=== PATIENT | female | born 1985 | race Caucasian/White ===

== ENCOUNTER 2023-07-04 14:17 | Inpatient (IN) | payer OTHER ==
[2023-07-04 15:24] VITALS: BMI 34.3
[2023-07-04] MEDS ORDERED: IBUPROFEN 400 MG TABLET (FP) PO PRN (18:23)
[2023-07-04] MEDS ORDERED: MAGNESIUM HYDROX 2400MG/30ML ORAL SUSPENSION 30 ML CUP PO PRN (18:23)
[2023-07-04] MEDS ORDERED: BENZOCAINE/MENTHOL (CHLORASEPTIC ) LOZENGE MM PRN (18:23)
[2023-07-04] MEDS ORDERED: MAG HYDROX/AL HYDROX/SIMETH 30 ML UNIT-DOSE CUP PO PRN (18:23)
[2023-07-04] MEDS ORDERED: BISMUTH SUBSALICYLATE 524 MG/30 ML PO PRN (18:23)
[2023-07-04] MEDS ORDERED: BENZONATATE 200 MG CAPSULE PO PRN (18:23)
[2023-07-04] MEDS ORDERED: POLYETHYLENE GLYCOL (HEALTHYLAX) 3350 17 GM PACKET PO PRN (18:23)
[2023-07-04] MEDS ORDERED: P-EPHED 60MG/TRIPROLIDI 2.5MG TABLET PO PRN (18:23)
[2023-07-04] MEDS ORDERED: guaiFENesin 600 MG TABLET.ER (FP) PO PRN (18:23)
[2023-07-04] MEDS ORDERED: ACETAMINOPHEN 325 MG TABLET (FP) PO PRN (18:23)
[2023-07-04] MEDS ORDERED: LOPERAMIDE HCL 2 MG CAPSULE PO PRN (18:23)
[2023-07-04] MEDS ORDERED: ALBUTEROL SO4 HFA INHALER IH PRN (19:44)
[2023-07-04] MEDS ORDERED: TOPIRAMATE 100 MG TABLET PO SCH (22:00)
[2023-07-04] MEDS ORDERED: PATIENT'S OWN MEDICATION (NON-FORMULARY) (Topiramate [Topiramate] 50 MG Tablet) PO SCH (22:00)
[2023-07-04] MEDS: TOPIRAMATE 100 MG, TOPIRAMATE 50 MG PO SCH (22:55)
[2023-07-04] MEDS: THIAMINE HCL 100 MG TABLET (FP) PO SCH (22:55)
[2023-07-04] MEDS: diazePAM 5 MG TABLET PO SCH (22:55)
[2023-07-05] MEDS: diazePAM 5 MG TABLET PO SCH ×4 (05:16→22:16)
[2023-07-05] MEDS: metFORMIN HCL 500 MG TABLET (FP) PO SCH (06:25)
[2023-07-05] MEDS: NICOTINE 14 MG/24 HOURS TOPICAL PATCH TD SCH (10:27)
[2023-07-05] MEDS: LORATADINE 10 MG TABLET PO SCH (10:27)
[2023-07-05] MEDS: PRENATAL VITAMINS W/ FOLIC ACID TABLET (FP) PO SCH (10:27)
[2023-07-05] MEDS: PATIENT'S OWN MEDICATION (NON-FORMULARY) (Linaclotide [Linzess] 145 MCG Capsule) PO SCH (10:28)
[2023-07-05] MEDS: TOPIRAMATE 100 MG, TOPIRAMATE 50 MG PO SCH ×2 (10:28→22:15)
[2023-07-05] MEDS: PANTOPRAZOLE 40 MG TABLET PO SCH (10:28)
[2023-07-05] MEDS: PATIENT'S OWN MEDICATION (NON-FORMULARY) (Mometasone Furoate [Asmanex] 220 MCG Aer.Pow.Ba) IH SCH (10:29)
[2023-07-05] MEDS: D3 PO SCH (10:29)
[2023-07-05] MEDS: DHA PO SCH (10:29)
[2023-07-05] MEDS: COD LIVER OIL PO SCH (10:29)
[2023-07-05] MEDS: EPA PO SCH (10:29)
[2023-07-05] MEDS: [UNRECOGNIZED DRUG - OTHER] PO SCH (10:29)
[2023-07-05] MEDS ORDERED: TOPIRAMATE 100 MG TABLET PO SCH (10:30)
[2023-07-05 10:34] LABS: HEMATOCRIT 41.8 % (32.4-45.2); HEMOGLOBIN 13.6 GM/dL (10.7-15.3); MCH 27.8 pg (25.7-33.7); MCHC 32.6 g/dl (32.0-36.0); MEAN CELL VOLUME 85.1 fl (80-96); MEAN PLT VOLUME 8.3 fl (7.5-11.1); PLATELET COUNT 319 10^3/uL (134-434); RBC 4.91 M/mm3 (3.60-5.2); RDW 13.8 % (11.6-15.6); WHITE BLOOD COUNT 9.5 K/mm3 (4.0-10.0)
[2023-07-05 10:51] LABS: CHLORIDE 113 mmol/L (98-107); POTASSIUM 3.9 mmol/L (3.5-5.1); SODIUM 137 mmol/L (136-145)
[2023-07-05 10:53] LABS: ANION GAP 0 mmol/L (4-13); CALCIUM 8.1 mg/dL (8.5-10.1); CO2 23 mmol/L (21-32); GLUCOSE,RANDOM 91 mg/dL (74-106)
[2023-07-05 10:54] LABS: ALBUMIN 3.1 g/dl (3.4-5.0); BLOOD UREA NITROGEN 14.7 mg/dL (7-18)
[2023-07-05 10:56] LABS: SGPT/ALT 19 U/L (13-61)
[2023-07-05 10:57] LABS: CREATININE 0.7 mg/dL (0.55-1.3); SGOT/AST 13 U/L (15-37)
[2023-07-05 10:58] LABS: BILIRUBIN,TOTAL 0.5 mg/dL (0.2-1); TOT PROT 6.4 g/dl (6.4-8.2)
[2023-07-05 10:59] LABS: ALK PHOS 100 U/L (45-117)
[2023-07-05] MEDS: ONDANSETRON *ODT* 4 MG TABLET SL PRN (14:24)
[2023-07-05] MEDS ORDERED: COLLOIDAL OATMEAL 1 BAR EACH TP PRN (18:08)
[2023-07-05] MEDS: IBUPROFEN 600 MG TABLET (FP) PO PRN (19:18)
[2023-07-05] MEDS: diazePAM 5 MG TABLET PO PRN (19:38)
[2023-07-05] MEDS ORDERED: QUEtiapine FUMARATE 50 MG TABLET PO SCH ×2 (22:00)
[2023-07-05] MEDS: THIAMINE HCL 100 MG TABLET (FP) PO SCH (22:15)
[2023-07-06] MEDS: diazePAM 5 MG TABLET PO SCH ×4 (05:46→21:35)
[2023-07-06] MEDS: metFORMIN HCL 500 MG TABLET (FP) PO SCH ×2 (06:19→08:48)
[2023-07-06] MEDS: LORATADINE 10 MG TABLET PO SCH (09:58)
[2023-07-06] MEDS: PATIENT'S OWN MEDICATION (NON-FORMULARY) (Linaclotide [Linzess] 145 MCG Capsule) PO SCH (09:59)
[2023-07-06] MEDS: NICOTINE 14 MG/24 HOURS TOPICAL PATCH TD SCH (10:00)
[2023-07-06] MEDS: PANTOPRAZOLE 40 MG TABLET PO SCH (10:00)
[2023-07-06] MEDS: PRENATAL VITAMINS W/ FOLIC ACID TABLET (FP) PO SCH (10:00)
[2023-07-06] MEDS: TOPIRAMATE 100 MG, TOPIRAMATE 50 MG PO SCH ×2 (10:01→21:34)
[2023-07-06] MEDS: EPA PO SCH (10:02)
[2023-07-06] MEDS: DHA PO SCH (10:02)
[2023-07-06] MEDS: PATIENT'S OWN MEDICATION (NON-FORMULARY) (Mometasone Furoate [Asmanex] 220 MCG Aer.Pow.Ba) IH SCH (10:02)
[2023-07-06] MEDS: D3 PO SCH (10:02)
[2023-07-06] MEDS: [UNRECOGNIZED DRUG - OTHER] PO SCH (10:02)
[2023-07-06] MEDS: COD LIVER OIL PO SCH (10:02)
[2023-07-06] MEDS: DULoxetine HCL 20 MG CAPSULE.DR PO SCH (11:17)
[2023-07-06] MEDS: ONDANSETRON *ODT* 4 MG TABLET SL PRN (13:13)
[2023-07-06] MEDS ORDERED: QUEtiapine FUMARATE 50 MG TABLET PO SCH (14:00)
[2023-07-06] MEDS: diazePAM 5 MG TABLET PO PRN (19:29)
[2023-07-06] MEDS: DICYCLOMINE HCL 10 MG CAPSULE PO PRN (19:29)
[2023-07-06] MEDS: THIAMINE HCL 100 MG TABLET (FP) PO SCH (21:34)
[2023-07-06] MEDS ORDERED: DULoxetine HCL 30 MG CAPSULE.DR PO SCH (22:00)
[2023-07-07] MEDS: diazePAM 5 MG TABLET PO SCH ×2 (05:11→18:36)
[2023-07-07] MEDS: metFORMIN HCL 500 MG TABLET (FP) PO SCH (07:27)
[2023-07-07] MEDS: LORATADINE 10 MG TABLET PO SCH (09:32)
[2023-07-07] MEDS: PATIENT'S OWN MEDICATION (NON-FORMULARY) (Mometasone Furoate [Asmanex] 220 MCG Aer.Pow.Ba) IH SCH (09:35)
[2023-07-07] MEDS: COD LIVER OIL PO SCH (09:36)
[2023-07-07] MEDS: EPA PO SCH (09:36)
[2023-07-07] MEDS: D3 PO SCH (09:36)
[2023-07-07] MEDS: DHA PO SCH (09:36)
[2023-07-07] MEDS: PRENATAL VITAMINS W/ FOLIC ACID TABLET (FP) PO SCH (09:36)
[2023-07-07] MEDS: [UNRECOGNIZED DRUG - OTHER] PO SCH (09:36)
[2023-07-07] MEDS: PANTOPRAZOLE 40 MG TABLET PO SCH (09:36)
[2023-07-07] MEDS: DULoxetine HCL 20 MG CAPSULE.DR PO SCH (09:41)
[2023-07-07] MEDS: PATIENT'S OWN MEDICATION (NON-FORMULARY) (Linaclotide [Linzess] 145 MCG Capsule) PO SCH (09:41)
[2023-07-07] MEDS: TOPIRAMATE 100 MG, TOPIRAMATE 50 MG PO SCH ×2 (09:43→22:28)
[2023-07-07] MEDS: NICOTINE 14 MG/24 HOURS TOPICAL PATCH TD SCH (09:53)
[2023-07-07] MEDS: diazePAM 5 MG TABLET PO PRN (13:59)
[2023-07-07] MEDS: IBUPROFEN 600 MG TABLET (FP) PO PRN ×2 (14:00→20:01)
[2023-07-07] MEDS: DICYCLOMINE HCL 10 MG CAPSULE PO PRN (18:35)
[2023-07-07] MEDS: THIAMINE HCL 100 MG TABLET (FP) PO SCH (22:28)
[2023-07-08] MEDS ORDERED: diazePAM 5 MG TABLET PO ONE (06:00)
[2023-07-08] MEDS: metFORMIN HCL 500 MG TABLET (FP) PO SCH (06:20)
[2023-07-08] MEDS: LORATADINE 10 MG TABLET PO SCH (09:17)
[2023-07-08] MEDS: DULoxetine HCL 20 MG CAPSULE.DR PO SCH (09:17)
[2023-07-08] MEDS: PATIENT'S OWN MEDICATION (NON-FORMULARY) (Mometasone Furoate [Asmanex] 220 MCG Aer.Pow.Ba) IH SCH (09:18)
[2023-07-08] MEDS: NICOTINE 14 MG/24 HOURS TOPICAL PATCH TD SCH (09:18)
[2023-07-08] MEDS: PATIENT'S OWN MEDICATION (NON-FORMULARY) (Linaclotide [Linzess] 145 MCG Capsule) PO SCH (09:18)
[2023-07-08] MEDS: COD LIVER OIL PO SCH (09:19)
[2023-07-08] MEDS: TOPIRAMATE 100 MG, TOPIRAMATE 50 MG PO SCH (09:19)
[2023-07-08] MEDS: D3 PO SCH (09:19)
[2023-07-08] MEDS: [UNRECOGNIZED DRUG - OTHER] PO SCH (09:19)
[2023-07-08] MEDS: EPA PO SCH (09:19)
[2023-07-08] MEDS: PANTOPRAZOLE 40 MG TABLET PO SCH (09:19)
[2023-07-08] MEDS: PRENATAL VITAMINS W/ FOLIC ACID TABLET (FP) PO SCH (09:19)
[2023-07-08] MEDS: DHA PO SCH (09:19)
[2023-07-08 09:20] VITALS: BP 100/63; PULSE 85; RESP 18; TEMP 97.6
== END 2023-07-08 13:31 | disposition home or self-care (01) | DRG 775 ==
LOC: YASAS 14:17 → Y3N 19:39
PROVIDERS: ADMIT Allergy & Immunology; ATTEND Surgery
PROC: HZ2ZZZZ Detoxification Services for Substance Abuse Treatment (ICD-10-PCS; principal; 2023-07-04)
DX: F10.230 Alcohol dependence with withdrawal, uncomplicated (principal); F12.20 Cannabis dependence, uncomplicated; F17.210 Nicotine dependence, cigarettes, uncomplicated; G47.00 Insomnia, unspecified; E11.9 Type 2 diabetes mellitus without complications; Z79.84 Long term (current) use of oral hypoglycemic drugs; Z20.822 Contact with and (suspected) exposure to COVID-19; Z86.69 Personal history of other diseases of the nervous system and sense organs; Z86.59 Personal history of other mental and behavioral disorders; Z88.1 Allergy status to other antibiotic agents; Z88.7 Allergy status to serum and vaccine
CPT/HCPCS: 36415; 80053; 80307; 81025; 82962; 85027; 86780; 87635; Q0162